=== PATIENT | male | born 1940 | race Caucasian/White ===

== ENCOUNTER 2019-06-06 00:40 | Day surgery (SDC) | payer MEDICARE ==
[~2019-06-06 00:40] MED LIST: ALLO300 PO; ASPI325EC PO; CALCA500CH PO; CHOL10002 PO; CODACE30 PO; CYAN500 PO; FAMO20 PO; FURO20 PO; HYDR1TAB94 PO; Klor-Con 1010 MEQ PO; LISI5 PO; MELA3 PO; METO25 PO; MULVIT PO; PRAV20 PO
== END 2019-06-06 10:59 | disposition home or self-care (01) ==
LOC: ATC 00:40
DX: R55 Syncope and collapse (principal); I10 Essential (primary) hypertension; E78.5 Hyperlipidemia, unspecified; I25.2 Old myocardial infarction; E11.9 Type 2 diabetes mellitus without complications; J45.909 Unspecified asthma, uncomplicated; Z87.891 Personal history of nicotine dependence; Z88.6 Allergy status to analgesic agent; Z88.5 Allergy status to narcotic agent
CPT/HCPCS: 36415; 80400; 82533; 96372; J0834

== ENCOUNTER 2019-09-24 09:25 | Day surgery (SDC) | payer MEDICARE ==
[~2019-09-24 09:25] MED LIST changes: +ONDA4ODT MM; +Tylenol #3 El12.5 ML PO
--- NOTE | 2019-09-24 12:29 | NUR ---
Patient up to Ambulate independently. Gait steady. Discharge instructions reviewed with patient. Patient verbalizes understanding. Copy given to patient to take home.Lungs clear T/O to Auscultation. PATIENT WAS RECEIVED FROM RADIOLOGY FOR RECOVERY AT 1050.
--- NOTE | 2019-09-25 14:33 | NUR ---
09/25/19 1433 Belén Alvarez PROCEDURE EDIT FOR PURPOSES OF VERIFICATION.
== END 2019-09-24 12:48 | disposition home or self-care (01) ==
LOC: CT 09:25
DX: C22.7 Other specified carcinomas of liver (principal); K86.9 Disease of pancreas, unspecified; M19.90 Unspecified osteoarthritis, unspecified site; I10 Essential (primary) hypertension; E11.9 Type 2 diabetes mellitus without complications; I25.10 Atherosclerotic heart disease of native coronary artery without angina pectoris; J45.909 Unspecified asthma, uncomplicated; K21.9 Gastro-esophageal reflux disease without esophagitis; Z87.891 Personal history of nicotine dependence; E66.9 Obesity, unspecified; Z68.37 Body mass index [BMI] 37.0-37.9, adult; Z79.82 Long term (current) use of aspirin; Z79.899 Other long term (current) drug therapy
CPT/HCPCS: 47000; 77012; 88307; 88341; 88342

== ENCOUNTER 2019-09-28 11:48 | Inpatient (IN) | payer MEDICARE ==
[~2019-09-28] VITALS: Ht 182.9 cm; Wt 136.5 kg
[~2019-09-28 11:48] MED LIST changes: -CALCA500CH PO; +Complete Senio1 EACH PO; -MULVIT PO; +TUMS500 MG PO
[2019-09-28 12:49] LABS: BASOPHILS ABSOLUTE AUTO 0.03 K/mm3 (0.00-0.23); BASOPHILS PERCENT AUTO 0 % (0-2); EOSINOPHILS ABSOLUTE AUTO 0.01 K/mm3 (0.00-0.68); EOSINOPHILS PERCENT AUTO 0 % (0-6); Hematocrit 39.6 % (37.0-53.0); Hemoglobin 12.9 g/dL (13.5-17.5); IMMATURE GRAN ABSOLUTE AUTO 0.16 K/mm3 (0.00-0.10); IMMATURE GRAN PERCENT AUTO 1 % (0-1); LYMPHOCYTES ABSOLUTE AUTO 0.46 K/mm3 (0.84-5.20); LYMPHOCYTES PERCENT AUTO 2 % (21-46); MONOCYTES ABSOLUTE AUTO 1.87 K/mm3 (0.16-1.47); MONOCYTES PERCENT AUTO 9 % (4-13); Mean Corpuscular HGB 31.1 pg (26.0-34.0); Mean Corpuscular HGB Conc 32.6 g/dL (31.5-36.5); Mean Corpuscular Volume 95 fL (80-100); Mean Platelet Volume 10.7 fL (9.1-12.4); NEUTROPHILS ABSOLUTE AUTO 18.59 K/mm3 (1.96-9.15); NEUTROPHILS PERCENT AUTO 88 % (41-73); Platelet Count 201 K/mm3 (150-400); RDW Coefficient Variation 14.6 % (11.7-14.2); RDW Standard Deviation 51.3 fL (35.1-46.3); Red Blood Cell Count 4.15 M/mm3 (4.30-5.90); White Blood Cell Count 21.12 K/mm3 (4.00-11.30)
[2019-09-28 13:13] LABS: Alanine Aminotransfer (ALT/SGP 158 U/L (12-78); Albumin, Blood 1.9 g/dL (3.4-5.0); Albumin/Globulin Ratio 0.5 (0.8-1.8); Alk Phos 394 U/L (50-136); Anion Gap 8 mmol/L (6-16); Aspartate Aminotrans (AST/SGOT 78 U/L (12-37); Bilirubin, Total 5.4 mg/dL (0.1-1.0); Blood Urea Nitrogen 30 mg/dL (8-24); Bun/Creatinine Ratio 28.8 (12.0-20.0); CO2, Blood 24 mmol/L (21-32); Calcium, Blood 8.1 mg/dL (8.5-10.1); Chloride, Blood 102 mmol/L (98-108); Creatinine, Blood 1.04 mg/dL (0.60-1.20); Globulin, Blood 3.8 g/dL (2.2-4.0); Glomerular Filtration Rate >60 (60-); Glucose, Blood 107 mg/dL (70-99); Potassium, Blood 4.3 mmol/L (3.5-5.5); Sodium, Blood 134 mmol/L (136-145); Total Protein, Blood 5.7 g/dL (6.4-8.2)
--- NOTE | 2019-09-28 14:00 | NUR ---
Initial Visit: Pt seen in the ER for symptom managment. Spoke to Dr. Gandhi. He is wanting palliative care to review medications with the pt, and the seems to be confused about giving medications at the correct dose. Pt is alert, oriented. He appears pale. He reports that he is not in "pain," however, he would describe it as being "uncomfortable." is at bedside. She has taken a log of the pt's medication administration. Pt takes 15mg MS Contin BID PRN. However, she has not given this to the pt due to excessive sedation and some "strange remarks, such as 'God, just take me away.'" He has not had the medication since the . She has done the same with his lorazepam. He has not taken any since the . He has taken zofran this morning. He has taken a Tylenol #3 early this morning with good benefit from that medication. He was taking it for breakthrough pain - along with the MS Contin. She states that after discontinuing the medications a couple days ago, he has recovered his normal mentation. He has been falling. He had a mechanical fall last week and a near fall today due to weakness and dizziness. He has been getting slightly dizzy upon standing. He is using a walker at home to go back and forth to the restroom. He has not had a meal in several days. is taking blood sugar everyday, once per day. It has ranged from 115 - around 140. He has been drinking ensure and glucerna. She has been giving him water with benefiber and miralax in it. He has regular bowel movements. He has lost weight in the last year and more in the last one month. Pt is currently complaining of hallucination of bugs crawling on the door and of "pretty wallpaper" at this time. He has gotten fluids and benedryl since arriving to the ER. He has many allergies to medications. His keeps a list of this also. He is having a clausterphobic event during my visit and he is helped into the chair, out of the bed. Transfer is with stand by assist of proof technician helper. This seems to help his event. is very attentive to her . It is clear that she has some caregiver stress. She reports that she is very concerned that she will not be able to keep him from falling. They have a single level home, but they have steps leading up to it. He has had difficulty navigating the steps. They had a home health referral from their PCP, but have not heard anything from them and they have not had a visit. They have seen the oncologist once. He has multiple doctor visits this week. He sees the GI doc tomorrow and she is worried about getting him into the car. When he fell, she had to call the parametics to get him up. Discussed with Dr. Gandhi. Suggest social work manager to discuss caregivers and assistance with home health. Discussed medications, updated on pt's current hallucination. Will follow up with pt if admitted to hospital.
[2019-09-28 16:30] LABS: International Normalized Ratio 1.85; Prothrombin Time Results 19.1 Sec (9.7-11.5)
[2019-09-28] MEDS ORDERED: DOCU100 PO (20:23)
[2019-09-28] MEDS ORDERED: NYSTRITC TOP (20:29)
[2019-09-28] MEDS ORDERED: METFORMIN ER G500 MG PO (20:34)
[2019-09-29 03:20] LABS: BASOPHILS ABSOLUTE AUTO 0.02 K/mm3 (0.00-0.23); BASOPHILS PERCENT AUTO 0 % (0-2); EOSINOPHILS ABSOLUTE AUTO 0.01 K/mm3 (0.00-0.68); EOSINOPHILS PERCENT AUTO 0 % (0-6); Hematocrit 35.5 % (37.0-53.0); Hemoglobin 11.5 g/dL (13.5-17.5); IMMATURE GRAN ABSOLUTE AUTO 0.26 K/mm3 (0.00-0.10); IMMATURE GRAN PERCENT AUTO 2 % (0-1); LYMPHOCYTES ABSOLUTE AUTO 0.41 K/mm3 (0.84-5.20); LYMPHOCYTES PERCENT AUTO 2 % (21-46); MONOCYTES ABSOLUTE AUTO 1.62 K/mm3 (0.16-1.47); MONOCYTES PERCENT AUTO 9 % (4-13); Mean Corpuscular HGB Conc 32.4 g/dL (31.5-36.5); Mean Corpuscular Volume 96 fL (80-100); Mean Platelet Volume 10.4 fL (9.1-12.4); NEUTROPHILS ABSOLUTE AUTO 15.28 K/mm3 (1.96-9.15); NEUTROPHILS PERCENT AUTO 87 % (41-73); Platelet Count 188 K/mm3 (150-400); RDW Coefficient Variation 14.7 % (11.7-14.2); RDW Standard Deviation 51.2 fL (35.1-46.3); Red Blood Cell Count 3.71 M/mm3 (4.30-5.90)
[2019-09-29 03:36] LABS: International Normalized Ratio 1.57; Prothrombin Time Results 16.4 Sec (9.7-11.5)
[2019-09-29 03:38] LABS: Alanine Aminotransfer (ALT/SGP 115 U/L (12-78); Albumin, Blood 1.8 g/dL (3.4-5.0); Albumin/Globulin Ratio 0.5 (0.8-1.8); Alk Phos 354 U/L (50-136); Anion Gap 8 mmol/L (6-16); Aspartate Aminotrans (AST/SGOT 58 U/L (12-37); Bilirubin, Total 5.2 mg/dL (0.1-1.0); Blood Urea Nitrogen 31 mg/dL (8-24); Bun/Creatinine Ratio 31.8 (12.0-20.0); CO2, Blood 26 mmol/L (21-32); Chloride, Blood 102 mmol/L (98-108); Creatinine, Blood 0.98 mg/dL (0.60-1.20); Globulin, Blood 3.6 g/dL (2.2-4.0); Glomerular Filtration Rate >60 (60-); Glucose, Blood 113 mg/dL (70-99); Potassium, Blood 3.9 mmol/L (3.5-5.5); Sodium, Blood 136 mmol/L (136-145); Total Protein, Blood 5.4 g/dL (6.4-8.2)
--- NOTE | 2019-09-29 08:08 | NUR ---
SHIFT SUMMARY PT RESTED INFREQUENTLY T/O NIGHT. CONFUSED/IMPULSIVE OOB. DISCOMFORT DECREASED WITH 2MG IV MORPHINE Q4H. NO NAUSEA/EMESIS. LACTIC ACID CRITICAL YESTARDAY PM, DECREASED TO WNL WITH X1 LITER LR + SCHEDULED IV ABX. HEPARIN GTT INFUSING PER ORDERS. UP TO BSC FREQUENTLY WITH URINE + X3 STOOLS. SBA WITH FWW, 2 PERSON MODERATE ASSIST PT FREQUENTLY REPORTS DIZZINESS UPON POSITION CHANGES, NO ACUTE CHANGE PER FAMILY REPORT DIZZINESS FOR "WEEKS." PT INCREASINGLY IMPULSIVE THIS AM TO GET OOB, BED ALARM ON FOR SAFETY. FAMILY AT BEDSIDE AT THIS TIME. REPORT TO DAY SHIFT RN. PT RESTING IN BED, EYES CLOSED WITH FAMILY AT BEDSIDE, CALL LIGHT IN REACH.
--- NOTE | 2019-09-29 15:14 | NUR ---
Pt resting in bed upon arrival. Dr Cole present, educating Pt and family on plan of care. This RN remained behind to answer questions after Dr Cole leaves. Pt reports 2/10 pain. He reports current regimen is managing his pain. Pt becomes tearful and states "I want to go home and focus on comfort". He states he does not want to spend money on treatment that will prolong his life for only a short term. Family speaks with Pt and request for him to process information and wait for Dr Villalta's recommendations before making a decision. Pt is agreeable. Pt and family report no other concerns. Pt and family agreeable with continued Palliative Care visits. Palliative Care will remain available for symptom management and therpaeutic visits.
--- NOTE | 2019-09-29 16:24 | NUR ---
Spiritual care visit conducted. Patient is lying in bed and alert. Patient's family surround him. Family tell me about their faith background, patient's medical history and about the wonderful family and muslim support system they have. They explain about their worries and fears. I listen empathically, reinforce helpful attitudes and practices and provide pastoral residential treatment counselor and prayer. Patient and family verbalize appreciation for the visit.
--- NOTE | 2019-09-29 19:27 | NUR ---
SUMMARY: NO ACUTE CHANGE TODAY. FORGETFUL, ALERT. PT FAMILY AT BEDSIDE TODAY. PT/FAMILY USING CALL LIGHT. HYDA SCAN TODAY, SEE ADDITIONAL NOTES BY DR. NAIK AND FELICITY. PLAN IS FOR DRAIN PLACEMENT TOMORROW. PT TO BE NPO AT 0000. MEDICATED FOR PAIN PRN. NO ACUTE SAFETY CONCERNS AT THIS TIME
[2019-09-30 04:59] LABS: Source, Urine Catheter
[2019-09-30 05:02] LABS: BASOPHILS ABSOLUTE AUTO 0.05 K/mm3 (0.00-0.23); BASOPHILS PERCENT AUTO 0 % (0-2); EOSINOPHILS ABSOLUTE AUTO 0.01 K/mm3 (0.00-0.68); EOSINOPHILS PERCENT AUTO 0 % (0-6); Hematocrit 35.3 % (37.0-53.0); Hemoglobin 11.6 g/dL (13.5-17.5); IMMATURE GRAN ABSOLUTE AUTO 0.42 K/mm3 (0.00-0.10); IMMATURE GRAN PERCENT AUTO 2 % (0-1); LYMPHOCYTES ABSOLUTE AUTO 0.63 K/mm3 (0.84-5.20); LYMPHOCYTES PERCENT AUTO 3 % (21-46); MONOCYTES ABSOLUTE AUTO 2.02 K/mm3 (0.16-1.47); MONOCYTES PERCENT AUTO 10 % (4-13); Mean Corpuscular HGB Conc 32.9 g/dL (31.5-36.5); Mean Corpuscular Volume 94 fL (80-100); Mean Platelet Volume 10.5 fL (9.1-12.4); NEUTROPHILS ABSOLUTE AUTO 18.01 K/mm3 (1.96-9.15); NEUTROPHILS PERCENT AUTO 85 % (41-73); Platelet Count 270 K/mm3 (150-400); RDW Coefficient Variation 14.9 % (11.7-14.2); RDW Standard Deviation 51.8 fL (35.1-46.3); Red Blood Cell Count 3.74 M/mm3 (4.30-5.90); White Blood Cell Count 21.14 K/mm3 (4.00-11.30)
--- NOTE | 2019-09-30 05:04 | NUR ---
SHIFT SUMMARY [id number]. PT CONFUSED T/O NIGHT. FREQUENTLY ATTEMPTING OOB, NOT USING CALL LIGHT. EDUCATED PORCELAIN TECHNICIAN LIGHT MULTIPLE TIMES. FREQUENT ATTEMPTS AT URINATION PT UNABLE TO URINATE MORE THAN 100 IN URINAL. UNABLE TO BLADDER SCAN PER ANATOMY. STRAIGHT CATH PERFORMED 100 OUT. SAMPLE SENT R/T CONCENTRATION OF URINE AND COLOR. PT HAS BEEN UP AND DOWN BETWEEN CHAIR AND BED MULTIPLE TIMES. VERY COOPERATIVE WITH CARE, PLEASANTLY CONFUSED DURING SHIFT. NPO SINCE MIDNIGHT PER ORDERS. PT TOLERATING WELL.
[2019-09-30 05:06] LABS: Bilirubin, Urine 2+ (Neg); Blood, Urine 4+ (Neg); Glucose Qualitative, Urine Neg (Neg); Ketones, Urine 2+ (Neg); Leukocyte Esterase, Urine 1+ (Neg); Nitrite, Urine Neg (Neg); Protein, Urine 2+ (Neg); Urobilinogen, Urine 2+ (Normal)
[2019-09-30 05:15] LABS: Appearance, Urine Hazy (Clear); Bacteria Few /hpf; Color, Urine Amber (P-Yellow); Squamous Epithelial Cells Few /hpf (Few)
[2019-09-30 05:16] LABS: Granular Casts 0-2 /lpf (0); Hyaline Casts 0-2 /lpf (0-2)
[2019-09-30 05:24] LABS: Alanine Aminotransfer (ALT/SGP 93 U/L (12-78); Albumin, Blood 1.7 g/dL (3.4-5.0); Albumin/Globulin Ratio 0.4 (0.8-1.8); Alk Phos 394 U/L (50-136); Anion Gap 8 mmol/L (6-16); Aspartate Aminotrans (AST/SGOT 66 U/L (12-37); Bilirubin, Total 3.7 mg/dL (0.1-1.0); Blood Urea Nitrogen 30 mg/dL (8-24); Bun/Creatinine Ratio 32.8 (12.0-20.0); CO2, Blood 24 mmol/L (21-32); Calcium, Blood 7.7 mg/dL (8.5-10.1); Chloride, Blood 104 mmol/L (98-108); Creatinine, Blood 0.92 mg/dL (0.60-1.20); Globulin, Blood 4.1 g/dL (2.2-4.0); Glomerular Filtration Rate >60 (60-); Glucose, Blood 118 mg/dL (70-99); Potassium, Blood 3.7 mmol/L (3.5-5.5); Sodium, Blood 136 mmol/L (136-145); Total Protein, Blood 5.8 g/dL (6.4-8.2)
--- NOTE | 2019-09-30 12:44 | NUR ---
Spiritual care visit conducted. Patient is sleeping and spouse, Bridget, is bedside. Bridget tells me that she is at a loss as to what to read out of the Bible at a time like this. I ask if I could quote Psalm 16 to her. She is amenable and as I quote this Psalm, patient awakens and listens until I finish. I talk with patient about what the verses may mean in difficult times. Patient states that he is ready to go and be with [place]. We talk about his hallucinations and his painful reality and how to have peace no matter what state he is. I also meet with Bridget in the hallway just outside patient's door. She shares about the anxiety and fear and also her tamara and hope. Bridget concludes that she will trust God and ultamately do whatever patient wants she just wants to make an informed decision and at least get some of the pressure and pain off patient before we go to comfort measures. I listen empathically, offer emotional/spiritual support, quote Bible verses and provide pastoral certified travel counselor and prayer. Patient and family respond well and show signs of improved hope.
--- NOTE | 2019-09-30 16:36 | NUR ---
Pt resting in bed and is having moderate intermittent shooting pain. Pt's Bridget is at bedside. Bridget expresses concerns of not knowing if Pt will receive his drain today. No other concerns reported at this time. Spoke with Bedside RN Janet, relayed Pt's pain and request for pain medication. Janet also expresses concerns of not knowing if Pt is having procedure today. Pt has been NPO since midnight and is not on schedule for procedure. Contacted Dr Kirby's office with request for contacting bedside RN if procedure will take place today. Palliative Care will remain available.
--- NOTE | 2019-09-30 17:51 | NUR ---
SHIFT SUMMARY THE PATIENT IS ALERT AND ORIENTED TO SELF AND PLACE WITH FORGETFULNESS. COMPLAINS OF PAIN CONSTANTLY TO R LOWER ABDOMEN; IV FENTANYL ADMINISTERED WITH POSITIVE EFFECTS. PATIENT NEEDS TO MOVE FROM BED TO CHAIR TO BED AGAIN CONSTANTLY. BED/CHAIR ALARMS ON. FAMILY HAVE BEEN AT BEDSIDE ALL DAY. PATIENT REMAINS ON IV ABX WITHOUT S/SX OF ADVERSE REACTIONS NOTED OR REPORTED. DR NAIK CAME TO SEE THE PATIENT AT APPROX 1730 AND INFORMED HIM THAT HE IS STILL ON THE SCHEDULE FOR THE DRAIN PLACEMENT TONIGHT. PATIENT HAS BEEN NPO. IV FLUIDS CONTINUE TO RUN PER ORDER. WILL CONTINUE TO MONITOR AND PROVIDE CARE NEEDED.
--- NOTE | 2019-10-01 04:01 | NUR ---
SHIFT SUMMARY: PT POD #1 FOR PERCUTANEOUS BILIARY DRAIN PLACEMENT. MODERATE AMOUNT OF BROWN FLUID IN BAG. PAIN MANAGED WITH 25MCG OF FENTANYL PRN PER EMAR. HEP GTT DISCONTINUED AFTER PROCEDURE AND PT STARTED ON HOME DOSE OF XERELTO PER HOSPITALIST ORDERS. PT PLEASANTLY CONFUSED T/O SHIFT. CALM AND COOPERATIVE WITH CARE. ALERT TO SELF AND FAMILY ONLY. ATTENDS CHANGED AND PT REPOSITIONED PRN. CBGS STABLE WITHOUT NEED FOR COVERAGE.
[2019-10-01 07:37] LABS: BASOPHILS ABSOLUTE AUTO 0.06 K/mm3 (0.00-0.23); BASOPHILS PERCENT AUTO 0 % (0-2); EOSINOPHILS ABSOLUTE AUTO 0.03 K/mm3 (0.00-0.68); EOSINOPHILS PERCENT AUTO 0 % (0-6); Hematocrit 33.7 % (37.0-53.0); Hemoglobin 10.9 g/dL (13.5-17.5); IMMATURE GRAN ABSOLUTE AUTO 0.68 K/mm3 (0.00-0.10); IMMATURE GRAN PERCENT AUTO 4 % (0-1); LYMPHOCYTES ABSOLUTE AUTO 0.62 K/mm3 (0.84-5.20); LYMPHOCYTES PERCENT AUTO 4 % (21-46); MONOCYTES PERCENT AUTO 8 % (4-13); Mean Corpuscular HGB Conc 32.3 g/dL (31.5-36.5); Mean Corpuscular Volume 96 fL (80-100); Mean Platelet Volume 9.9 fL (9.1-12.4); NEUTROPHILS ABSOLUTE AUTO 13.96 K/mm3 (1.96-9.15); NEUTROPHILS PERCENT AUTO 84 % (41-73); Platelet Count 211 K/mm3 (150-400); RDW Coefficient Variation 15.5 % (11.7-14.2); RDW Standard Deviation 53.5 fL (35.1-46.3); Red Blood Cell Count 3.52 M/mm3 (4.30-5.90); White Blood Cell Count 16.65 K/mm3 (4.00-11.30)
[2019-10-01 07:57] LABS: Alanine Aminotransfer (ALT/SGP 119 U/L (12-78); Albumin, Blood 1.5 g/dL (3.4-5.0); Albumin/Globulin Ratio 0.4 (0.8-1.8); Alk Phos 450 U/L (50-136); Anion Gap 6 mmol/L (6-16); Aspartate Aminotrans (AST/SGOT 186 U/L (12-37); Bilirubin, Total 6.1 mg/dL (0.1-1.0); Blood Urea Nitrogen 22 mg/dL (8-24); Bun/Creatinine Ratio 33.1 (12.0-20.0); CO2, Blood 25 mmol/L (21-32); Calcium, Blood 7.7 mg/dL (8.5-10.1); Chloride, Blood 108 mmol/L (98-108); Creatinine, Blood 0.67 mg/dL (0.60-1.20); Globulin, Blood 3.7 g/dL (2.2-4.0); Glomerular Filtration Rate >60 (60-); Glucose, Blood 102 mg/dL (70-99); Potassium, Blood 3.5 mmol/L (3.5-5.5); Sodium, Blood 139 mmol/L (136-145); Total Protein, Blood 5.2 g/dL (6.4-8.2)
--- NOTE | 2019-10-01 08:14 | NUR ---
DR VILLALTA BY TO SEE PT RT CALLED FOR NEB TX
--- NOTE | 2019-10-01 10:08 | NUR ---
dr honeycutt called pt up in chair pt stated he still is hurting re the drain req tylenol 3 pt stated he has taken it in the past with out a rx has had allergic rx to oxy rash all over unsure if he has taken norco
--- NOTE | 2019-10-01 12:04 | NUR ---
dr brown by to see pt up in chair pt stated pain is much better 11/20
--- NOTE | 2019-10-01 13:10 | NUR ---
PT BACK INTO BED RESTING
--- NOTE | 2019-10-01 13:41 | NUR ---
pallative care rn at bedside
--- NOTE | 2019-10-01 14:17 | NUR ---
Therapeutic visit this afternoon. Pt resting in bed with his eyes closed. Pt's and granddaughter at bedside. Offered therapeutic listening and answered questions. Pt intermittently opens his eyes but is non verbal. Bridget expresses concerns regarding finances and her ability to hire caregivers. Instructed Bridget these concerns will be relayed to Caremanager. Family agreeable with continued Palliative Care visits. Spoke with Caremanager Grace and relayed concerns. Spoke with Hospitalist and discussed case. Palliative Care will remain available.
--- NOTE | 2019-10-01 15:34 | NUR ---
Spiritual care visit conducted. Patient is sleeping so patient's spouse, Bridget, walks me outside the room to talk. She shares about how she had in the room crying because she is so overwhelmed by all that is happening and the decisions that are being and will have to be made. We unpack some of her worries, talk about sources of strength and direction and discuss the patient's wishes. I listen empathically, encourage self-care, normalize her experience and provide recitation of scripture and a calming presence. Patient responds well and voices gratitude for the visit.
--- NOTE | 2019-10-01 17:40 | NUR ---
pt sitting up eating dinner meds given as sched offered pain meds pt declined pt drain emptied 80 ml earlier pt had est 100 ml emptied onto the floor the cap came loose pt worried that the staff will not answer his lights on the night stocker stated i will talk with night stocker about rounding and make a sched for him
--- NOTE | 2019-10-02 02:30 | NUR ---
ASSUMED CARE OF PT. PT SLEEPING IN BED, RESP E/U, NO DISTRESS NOTED. PLAN TO MONITOR AND TX PER ORDERS.
--- NOTE | 2019-10-02 03:15 | NUR ---
SHIFT SUMMARY PT APPEARS TO HAVE SLEPT WELL T/O NIGHT. ABX GIVEN PER ORDERS. DRAIN TO RLQ IN PLACE, DRESSING C/D/I. PT ABLE TO FOLLOW DIRECTIONS AND ASSIST WITH REPOSITIONING. IS CURRENTLY RESTING IN BED WITH CALL LIGHT IN REACH. REPORT GIVEN TO PAVEL LOMBARDO.
--- NOTE | 2019-10-02 07:43 | NUR ---
PT VSS T/O NIGHT, PT SLEPT FOR MOST OF NIGHT, AWOKE ALERT AND ORIENTED. DRAIN DRNG THICK GREEN BILE. PT APPEARS MORE JAUNDICED THIS AM. URINE DARK, STAINING BRIGHT YELLOW, UO MINIMAL, IVF CONT PER ORDERS. PT USING CALL LIGHT FOR ASSISTANCE, BED ALARM ON FOR SAFETY. REPORT GIVEN TO DAY RN.
[2019-10-02 08:51] LABS: Alanine Aminotransfer (ALT/SGP 144 U/L (12-78); Albumin, Blood 1.4 g/dL (3.4-5.0); Albumin/Globulin Ratio 0.4 (0.8-1.8); Alk Phos 426 U/L (50-136); Anion Gap 3 mmol/L (6-16); Aspartate Aminotrans (AST/SGOT 217 U/L (12-37); Bilirubin, Total 5.5 mg/dL (0.1-1.0); Blood Urea Nitrogen 21 mg/dL (8-24); Bun/Creatinine Ratio 31.8 (12.0-20.0); CO2, Blood 27 mmol/L (21-32); Calcium, Blood 7.6 mg/dL (8.5-10.1); Chloride, Blood 108 mmol/L (98-108); Creatinine, Blood 0.66 mg/dL (0.60-1.20); Globulin, Blood 3.5 g/dL (2.2-4.0); Glomerular Filtration Rate >60 (60-); Glucose, Blood 108 mg/dL (70-99); Potassium, Blood 3.4 mmol/L (3.5-5.5); Sodium, Blood 138 mmol/L (136-145); Total Protein, Blood 4.9 g/dL (6.4-8.2)
--- NOTE | 2019-10-02 09:00 | NUR ---
PT QUITE PLEASANT COOP A/O X3 SOME ABD PN MED PER EMAR. PERCUTANEOIS BILIARY DRAIN BROWN FLUID DRAINING SCANT FLUID AT SIDE IN BAG. IN TO VISIT PT. H/R REG, NO MURMER NOTED. NO TELE. LUNGS CLEAR, RESP EASY, UNLABORED. ON R.A/ BT X4 LAST BM NOT KNOWN, IS TENDER. LARGE, PT STATES NORM SIZE. VIODS 1 ASST TO BATHROOM. FWW. PT WORKING THRU NEW CA DX. AT BEDSIDE. STATES BAHAI FAMILY, GOOD SUPPORT. CONTINUE TO FOLLOW. VISITED WITH PT OFFERED COMFORT AND UNDERSTANDING. BED IN LOW POSITION, CALL LITE IN REACH, CALLS APPROP
--- NOTE | 2019-10-02 11:11 | NUR ---
Pt resting in recliner chair, awake, and more alert this AM. Pt reports his pain is managed with current regimen. Pt's also present during visit. Offered therapeutic listening as Pt and express fears and concerns. Listened to both Pt and 's goals. Pt expresses fears of being a burden for his and fears regarding quality of life. Bridget reports willingness to do what it takes to care for Pt and states he would not be a burden. Continued therapeutic listening with Pt and coming to an agreement to stay the coarse of treatment plan. Discussed current code status and educated on life sustaining measures. Pt reports for now is willing to remain a full code and will revist wishes as needed. Bridget inquires about having Pt's DMV document for Handicapp karime being signed by . Suggest to discuss and request hospitalist sign when she makes her rounds. Pt and express appreciation of visit and report no other concerns. Spoke with Krsiti Edwards and discussed case. Palliative Care will remain available for symptom management and therapeutic visits.
--- NOTE | 2019-10-02 11:27 | NUR ---
PT AMBULATED SELF TO BATHROOM TO URINATE. SBA. DID WELL, TIRED WHEN BACK TO BED.
--- NOTE | 2019-10-02 11:59 | NUR ---
Spiritual care visit conducted. Patient is sitting on a chair and alert. Patient has spouse, Bridget, present. We talk about decisions anchored in the advance directive, about the mandaeism aspects of these issues and about goals they have for this season. I listen empathically, normalize patient's experience, explore issues of tamara and scripture and provide pastoral guidance and prayer. Patient and Bridget respond well. I will continue to remain available to patient and family.
--- NOTE | 2019-10-02 13:21 | NUR ---
Therapeutic visit. Dr Bland at bedside discussing plan of care and prognosis. This RN remained behind to answer questions for Pt and family. Family still hanging on to hope that another drain can be placed to help reduce bilirubin levels. Family request for Dr Villalta to come visit with him. Pt appears accepting of prognosis and states "It's time to move to plan B and keep me comfortable". Discussed hospice as an option and educated on hospice philosophy. Continued therapeutic listening and offered emotional support. Family expresses appreciation of visit. Spoke with Dr Mock and discussed case. Called Dr Villalta's office and relayed family's request for Dr Villalta to make visit. Palliative Care will remain available.
--- NOTE | 2019-10-02 14:51 | NUR ---
Spiritual care visit conducted. After receiving a call from Osmani Saavedra stating that the patient just received a hospice diagnosis. Patient and family were crying when I entered the room. I talked with family about the reality of the situation and the difficulty of processing it, about the importance of tamara, hope and love and about the power of fully being in each moment. I listened to their concerns and hopes, I provided a calming presence, pastoral personnel counselor and prayer. They all responded well and showed signs of improved hope. I will continue to remain available to patient and family.
--- NOTE | 2019-10-02 16:44 | NUR ---
PT PLEASAANT COOP A/O. PAIN MANAGED WITH AVAIL MEDS. VERY LITTLE DRAINAGE IN BILIARY DRAIN BAG. HAS BEEN UP TO BATHROOM SEVERAL TIMES. WORKING ON HIS I/S. BOTTOM SOME RED, ENCOURAGED TO GET OFF BOTTOM AND KEEP TURNING TO SIDES. PT AGREES. BED IN LOW POSITION, CALL LITE IN REACH, CALLS APPROP. AT BED SIDE.
[2019-10-03 05:48] LABS: BASOPHILS ABSOLUTE AUTO 0.05 K/mm3 (0.00-0.23); BASOPHILS PERCENT AUTO 0 % (0-2); EOSINOPHILS ABSOLUTE AUTO 0.19 K/mm3 (0.00-0.68); EOSINOPHILS PERCENT AUTO 2 % (0-6); Hematocrit 35.7 % (37.0-53.0); Hemoglobin 11.3 g/dL (13.5-17.5); IMMATURE GRAN ABSOLUTE AUTO 0.63 K/mm3 (0.00-0.10); IMMATURE GRAN PERCENT AUTO 5 % (0-1); LYMPHOCYTES ABSOLUTE AUTO 0.77 K/mm3 (0.84-5.20); LYMPHOCYTES PERCENT AUTO 7 % (21-46); MONOCYTES ABSOLUTE AUTO 0.75 K/mm3 (0.16-1.47); MONOCYTES PERCENT AUTO 6 % (4-13); Mean Corpuscular HGB 30.1 pg (26.0-34.0); Mean Corpuscular HGB Conc 31.7 g/dL (31.5-36.5); Mean Corpuscular Volume 95 fL (80-100); Mean Platelet Volume 10.3 fL (9.1-12.4); NEUTROPHILS ABSOLUTE AUTO 9.34 K/mm3 (1.96-9.15); NEUTROPHILS PERCENT AUTO 80 % (41-73); Platelet Count 219 K/mm3 (150-400); RDW Coefficient Variation 15.7 % (11.7-14.2); RDW Standard Deviation 54.7 fL (35.1-46.3); Red Blood Cell Count 3.76 M/mm3 (4.30-5.90); White Blood Cell Count 11.73 K/mm3 (4.00-11.30)
[2019-10-03 06:18] LABS: Alanine Aminotransfer (ALT/SGP 181 U/L (12-78); Albumin, Blood 1.5 g/dL (3.4-5.0); Albumin/Globulin Ratio 0.4 (0.8-1.8); Alk Phos 484 U/L (50-136); Anion Gap 6 mmol/L (6-16); Aspartate Aminotrans (AST/SGOT 240 U/L (12-37); Bilirubin, Direct 5.4 mg/dL (0.0-0.3); Bilirubin, Total 6.2 mg/dL (0.1-1.0); Blood Urea Nitrogen 19 mg/dL (8-24); Bun/Creatinine Ratio 25.4 (12.0-20.0); CO2, Blood 27 mmol/L (21-32); Calcium, Blood 7.8 mg/dL (8.5-10.1); Chloride, Blood 109 mmol/L (98-108); Creatinine, Blood 0.75 mg/dL (0.60-1.20); Globulin, Blood 3.9 g/dL (2.2-4.0); Glomerular Filtration Rate >60 (60-); Glucose, Blood 111 mg/dL (70-99); Potassium, Blood 3.6 mmol/L (3.5-5.5); Sodium, Blood 142 mmol/L (136-145); Total Protein, Blood 5.4 g/dL (6.4-8.2)
--- NOTE | 2019-10-03 07:36 | NUR ---
SHIFT SUMMARY: CHRIS HAS RESTED INTERMITTENTLY DURING THE NIGHT. HE USES HIS CALL LIGHT APPROPRIATELY. HE HAS BEEN URINATING IN THE URINAL OR AMBULATING TO THE BATHROOM. HE USES A FWW AT HOME. BILIRUBIN HAS INCREASED TO 6.2. PERCUTANEOUS BILIARY DRAIN PATENT, DRAINING BROWNISH FLUID. HE HAS COMPLAINED OF PAIN ON HIS COCCYX, MEPLIEX IN PLACE. SKIN INTACT WITH SOME BLANCHABLE REDNESS. HE WAS ENCOURAGED TO STAY OFF OF HIS BOTTOM OFTEN POSSIBLE. HE WAS ASSISTED WITH TURNS AND REPOSITIONING. HE DOES MOVE HIMSELF FAIRLY WELL IN BED. HE IS TOLERATING PO INTAKE, BUT DID COMPLAIN OF NAUSEA EARLY IN THE SHIFT FOR WHICH HE REPORTED ZOFRAN TO BE EFFECTIVE AND DECLINED ANY FURTHER DOSES. HE STATES THAT HE HAS NOT HAD A BOWEL MOVEMENT FOR A COUPLE OF DAYS. HE IS ABLE TO MAKE HIS NEEDS KNOWN. WILL REPORT TO DAY SHIFT RN.
--- NOTE | 2019-10-03 12:13 | NUR ---
1200-pt transported to imaging for MRCP via wheelchair 1215-pt back in room, too large for MR equipment. notified
--- NOTE | 2019-10-03 13:28 | NUR ---
dr brown roundjuan on pt. In room US being performed now
--- NOTE | 2019-10-03 16:55 | NUR ---
dr brown rounding on pt
[2019-10-03 18:04] LABS: International Normalized Ratio 1.39; Prothrombin Time Results 14.6 Sec (9.7-11.5)
--- NOTE | 2019-10-03 18:18 | NUR ---
shift summary: vss, no acute changes, pt remained a/o x 4, forgetful at times, reorients well and follows directions. pt denies n/v, rates pain at 5/10, medicated per mar with reported 3/10. family/friends in room with pt t/o the day. pt unable to receive MRI due to sizing issues. pt received ultrasound today in anticpation of Stent placement. Dr Villalta unable to schedule placement r/t pt being on Xarelto. after consulting with pt, Dr Villalta recommends preparing for procedure Sunday with Dr John. pt worked with PT/OT this shift, ambulated in hallway, up to bathroom with gait belt/fww/standby. Biliary drain with 100 ml out this shift, thick viscous yellow/green fluid. pt denies n/v, states he has no appetite. this RN encouraged PO intake with meal supplements, which pt agreed to. Also encouraged family to bring snacks of healthy foods pt enjoys. Pt states he has a hard time getting comfortable at night. This RN provided pt and family education on bedtime resources for comfort provided by surgical unit. pt states he will request if he wishes
--- NOTE | 2019-10-04 04:12 | NUR ---
SHIFT SUMMARY PT A/O, VSS W/OUT ANY ACUTE CHANGES THIS SHIFT. IV HEPARIN INFUSING, AWAITING MORNING LABS FOR PTT. DENIES N/V, ENCOURAGED PO INTAKE. PAIN MANAGED WITH ONE TAB TYLENOL #3. PT UP TO CHAIR W/1 ASSIST; IS ALSO ABLE TO ASSIT WITH REPOSITIONING. PERCUTANEOUS BILIARY DRAIN PATENT, DRAINING GREEN FLUID. PAIN MANAGED WITH ONE TAB TYLENOL #3. USES CALL LIGHT APPROPRIATELY. ABLE TO USE URINAL W/ASSISTANCE, NO INCONTINENCE THIS SHIFT. PT CURRENTLY WATCHING TV IN CHAIR AT THIS TIME WITH CALL LIGHT IN REACH. WILL CONTINUE TO MONITOR AND GIVE REPORT TO ONCOMING.
[2019-10-04 06:07] LABS: BASOPHILS ABSOLUTE AUTO 0.04 K/mm3 (0.00-0.23); BASOPHILS PERCENT AUTO 0 % (0-2); EOSINOPHILS ABSOLUTE AUTO 0.16 K/mm3 (0.00-0.68); EOSINOPHILS PERCENT AUTO 2 % (0-6); Hematocrit 32.9 % (37.0-53.0); Hemoglobin 10.8 g/dL (13.5-17.5); IMMATURE GRAN PERCENT AUTO 7 % (0-1); LYMPHOCYTES ABSOLUTE AUTO 0.77 K/mm3 (0.84-5.20); LYMPHOCYTES PERCENT AUTO 8 % (21-46); MONOCYTES ABSOLUTE AUTO 0.66 K/mm3 (0.16-1.47); MONOCYTES PERCENT AUTO 7 % (4-13); Mean Corpuscular HGB 30.9 pg (26.0-34.0); Mean Corpuscular HGB Conc 32.8 g/dL (31.5-36.5); Mean Corpuscular Volume 94 fL (80-100); NEUTROPHILS ABSOLUTE AUTO 7.33 K/mm3 (1.96-9.15); NEUTROPHILS PERCENT AUTO 76 % (41-73); Platelet Count 243 K/mm3 (150-400); RDW Coefficient Variation 15.9 % (11.7-14.2); RDW Standard Deviation 54.4 fL (35.1-46.3); White Blood Cell Count 9.66 K/mm3 (4.00-11.30)
[2019-10-04 06:24] LABS: Alanine Aminotransfer (ALT/SGP 206 U/L (12-78); Albumin, Blood 1.4 g/dL (3.4-5.0); Albumin/Globulin Ratio 0.4 (0.8-1.8); Alk Phos 529 U/L (50-136); Anion Gap 6 mmol/L (6-16); Aspartate Aminotrans (AST/SGOT 281 U/L (12-37); BAND PERCENT MAN 2 % (0-8); BASOPHILS PERCENT MAN 0 % (0-2); Bilirubin, Total 6.6 mg/dL (0.1-1.0); Blood Urea Nitrogen 17 mg/dL (8-24); Bun/Creatinine Ratio 23.2 (12.0-20.0); CO2, Blood 28 mmol/L (21-32); Calcium, Blood 7.7 mg/dL (8.5-10.1); Chloride, Blood 108 mmol/L (98-108); Creatinine, Blood 0.73 mg/dL (0.60-1.20); EOSINOPHILS ABSOLUTE MAN 0.19 K/mm3 (0.00-0.68); EOSINOPHILS PERCENT MAN 2 % (0-6); Globulin, Blood 3.9 g/dL (2.2-4.0); Glomerular Filtration Rate >60 (60-); Glucose, Blood 115 mg/dL (70-99); LYMPHOCYTES ABSOLUTE MAN 1.15 K/mm3 (0.84-5.20); LYMPHOCYTES PERCENT MAN 12 % (21-46); METAMYELOCYTE ABSOLUTE MAN 0.19 K/mm3 (0.00-0.00); METAMYELOCYTE PERCENT MAN 2 % (0-0); MONOCYTES ABSOLUTE MAN 0.28 K/mm3 (0.16-1.47); MONOCYTES PERCENT MAN 3 % (4-13); NEUTROPHILS ABSOLUTE MAN 7.82 K/mm3 (1.96-9.15); Potassium, Blood 4.5 mmol/L (3.5-5.5); SEG NEUTROPHILS PERCENT MAN 79 % (41-73); Sodium, Blood 142 mmol/L (136-145); TOTAL CELLS COUNTED 100; Total Protein, Blood 5.3 g/dL (6.4-8.2)
--- NOTE | 2019-10-04 19:31 | NUR ---
SHIFT SUMMARY NO ACUTE CHANGES NOTED THROUGH THE DAY. PT REMAINS A&O X4. PT IS TOLERATING PO INTAKE ALTHOUGH APPETITE IS MINIMAL. PAIN MANAGED WITH PO TYLENOL #3. DRSG REMAINS C/D/I, 60 ML DARK GREEN DRAINAGE NOTED IN BAG. HEPARIN INFUSING PER POWERGLIDE @ 20 UNITS/HR. PT IS ON RA, VSS, 1 ASSIST FOR TRANSFERS. IS AT THE BEDSIDE. FAMILY HAS BEEN IN THROUGH THE DAY. REPORT GIVEN TO DIA ZHAO. CALL LIGHT IN REACH
--- NOTE | 2019-10-05 04:07 | NUR ---
SHIFT SUMMARY AAOX4, VSS. PT HAS BEEN AMBULATING WITH 1 ASSIST FWW,GB. CALLING APPROPRIATLY. REPOSITIONING IN BED FREQUENTLY. AT BEDSIDE HAS BEEN HELPING PT TO USE URINAL. PT MEDICATED FOR PAIN WITH TYLENOL 3 X1. TOLERATED WELL STATED RELIEF. DRAIN IS HAVING BROWN/YELLOW DRAINAGE. PT HAS BEEN POSITIVE AND COOPERATIVE WITH CARE. HEPARIN INFUSING T/O SHIFT PER EMAR.
[2019-10-05 05:22] LABS: Hematocrit 31.2 % (37.0-53.0); Hemoglobin 10.3 g/dL (13.5-17.5); Mean Corpuscular HGB 30.7 pg (26.0-34.0); Mean Corpuscular Volume 93 fL (80-100); Mean Platelet Volume 10.3 fL (9.1-12.4); Platelet Count 207 K/mm3 (150-400); RDW Coefficient Variation 15.9 % (11.7-14.2); RDW Standard Deviation 53.7 fL (35.1-46.3); Red Blood Cell Count 3.36 M/mm3 (4.30-5.90); White Blood Cell Count 10.49 K/mm3 (4.00-11.30)
[2019-10-05 05:57] LABS: Alanine Aminotransfer (ALT/SGP 193 U/L (12-78); Albumin, Blood 1.5 g/dL (3.4-5.0); Albumin/Globulin Ratio 0.5 (0.8-1.8); Alk Phos 515 U/L (50-136); Anion Gap 2 mmol/L (6-16); Aspartate Aminotrans (AST/SGOT 200 U/L (12-37); Bilirubin, Total 6.5 mg/dL (0.1-1.0); Blood Urea Nitrogen 14 mg/dL (8-24); Bun/Creatinine Ratio 22.4 (12.0-20.0); CO2, Blood 28 mmol/L (21-32); Calcium, Blood 7.6 mg/dL (8.5-10.1); Chloride, Blood 109 mmol/L (98-108); Creatinine, Blood 0.63 mg/dL (0.60-1.20); Globulin, Blood 3.3 g/dL (2.2-4.0); Glomerular Filtration Rate >60 (60-); Glucose, Blood 119 mg/dL (70-99); Potassium, Blood 3.2 mmol/L (3.5-5.5); Sodium, Blood 139 mmol/L (136-145); Total Protein, Blood 4.8 g/dL (6.4-8.2)
[2019-10-05 06:16] LABS: BAND PERCENT MAN 2 % (0-8); BASOPHILS PERCENT MAN 0 % (0-2); EOSINOPHILS PERCENT MAN 1 % (0-6); LYMPHOCYTES ABSOLUTE MAN 0.73 K/mm3 (0.84-5.20); LYMPHOCYTES PERCENT MAN 7 % (21-46); METAMYELOCYTE PERCENT MAN 1 % (0-0); MONOCYTES ABSOLUTE MAN 0.62 K/mm3 (0.16-1.47); MONOCYTES PERCENT MAN 6 % (4-13); NEUTROPHILS ABSOLUTE MAN 8.91 K/mm3 (1.96-9.15); SEG NEUTROPHILS PERCENT MAN 83 % (41-73); TOTAL CELLS COUNTED 100
--- NOTE | 2019-10-05 15:40 | NUR ---
SUMMARY: NO ACUTE CHANGE TODAY. PT A/O, VSS. USING CALL LIGHT. UP WITH SBA AND FWW. BILIARY DRAIN OUTPUT WAS ABOUT 60ML. PT MEDICATED FOR PAIN PER EMAR. RECEIVED ANTIBIOTICS. PT AT BEDSIDE. PLAN IS FOR NPO TONIGHT AND DRAIN PLACEMENT TOMORROW. WILL CTM AND REPORT TO DIA ZHAO.
--- NOTE | 2019-10-05 23:08 | NUR ---
NOTICED INCREASE SWELLING IN PT'S RIGHT HAND WITH PITTING EDEMA IN THE R HAND. SPOKE TO RADHA, HOSPITALIST. ORDERS FOR VENOUS DUPLEX TO RULE OUT DVT RECEIVED. ORDERS TO PLACE NEW POWER GLIDE IN OTHER ARM GIVEN. PT DENIES PAIN OR NUMBNESS IN RIGHT HAND. PULSES STILL PALPABLE.
--- NOTE | 2019-10-06 00:32 | NUR ---
LEONIE VENOUS DUPLEX: RESULTS REVIEWED W/HOSPITALIST RADHA Benitez PT MED HX AND CURRENT TX PLANS REVIEWED. ALSO UPDATED ON PLAN FOR GALLBLADDER STENT W/DR GOODMAN 10/06/19 WITH SCHEDULED TIME UNCLEAR. NURSING CLOTH GRADER SUPERVISOR UNABLE TO OBTAIN HEART CENTER SCHEDULE. PLAN TO CONTACT HEART CENTER STAFF AT 0600 TO ATTEMPT TO OBTAIN SCHEDULE. HEPARIN GTT TO BE CONT T/O NIGHT PER HOSPITALIST RADHA Benitez UNTIL TIMING OF PROCEDURE OBTAINED. PRIMARY RN AND PHARMACIST NOTIFIED.
--- NOTE | 2019-10-06 00:48 | NUR ---
NIGHT HOSPITALIST RADHA Benitez ON FLOOR REVIEWING PT CHART.
--- NOTE | 2019-10-06 04:10 | NUR ---
SHIFT SUMMARY AA0X4, VSS. PT HAS BEEN PLEASANT AND COOPERATIVE WITH CARE. AMBULATES 1 ASSIST FWW. VOIDING IN URINAL, IN ROOM HELPING WITH ADLS. HEPARIN RESTARTED PER PHARMACY AND HOSPITALIST, SEE PREVIOUS NOTES. AWAITING HEART CENTER SCHEDULE TO DETERMINE TIME OF SURGERY AND TO DETERMINE CONTINUED PLAN OF INFUSION. NEW DVT AND SVT FOUND DURING SHIFT. IV CATHETERS DC'D IN RIGHT ARM, NEW POWERGLIDE IN LEFT ARM. PT REPOSITIONING FREQUENTLY IN BED. NPO SINCE MIDNIGHT PER ORDERS FOR OR TODAY. NOTICED AN INCREASE IN JAUNDICE OF SKIN DURING SHIFT.
[2019-10-06 05:02] LABS: BASOPHILS ABSOLUTE AUTO 0.05 K/mm3 (0.00-0.23); BASOPHILS PERCENT AUTO 1 % (0-2); EOSINOPHILS ABSOLUTE AUTO 0.19 K/mm3 (0.00-0.68); EOSINOPHILS PERCENT AUTO 2 % (0-6); Hematocrit 31.3 % (37.0-53.0); Hemoglobin 10.2 g/dL (13.5-17.5); IMMATURE GRAN PERCENT AUTO 5 % (0-1); LYMPHOCYTES ABSOLUTE AUTO 0.76 K/mm3 (0.84-5.20); LYMPHOCYTES PERCENT AUTO 7 % (21-46); MONOCYTES ABSOLUTE AUTO 0.61 K/mm3 (0.16-1.47); MONOCYTES PERCENT AUTO 6 % (4-13); Mean Corpuscular HGB 30.4 pg (26.0-34.0); Mean Corpuscular HGB Conc 32.6 g/dL (31.5-36.5); Mean Corpuscular Volume 93 fL (80-100); Mean Platelet Volume 10.3 fL (9.1-12.4); NEUTROPHILS ABSOLUTE AUTO 8.68 K/mm3 (1.96-9.15); NEUTROPHILS PERCENT AUTO 80 % (41-73); Platelet Count 218 K/mm3 (150-400); RDW Coefficient Variation 16.1 % (11.7-14.2); RDW Standard Deviation 54.8 fL (35.1-46.3); Red Blood Cell Count 3.36 M/mm3 (4.30-5.90); White Blood Cell Count 10.79 K/mm3 (4.00-11.30)
[2019-10-06 05:22] LABS: Alanine Aminotransfer (ALT/SGP 166 U/L (12-78); Albumin, Blood 1.6 g/dL (3.4-5.0); Albumin/Globulin Ratio 0.5 (0.8-1.8); Alk Phos 496 U/L (50-136); Anion Gap 6 mmol/L (6-16); Aspartate Aminotrans (AST/SGOT 154 U/L (12-37); Bilirubin, Total 7.5 mg/dL (0.1-1.0); Blood Urea Nitrogen 11 mg/dL (8-24); CO2, Blood 28 mmol/L (21-32); Calcium, Blood 7.6 mg/dL (8.5-10.1); Chloride, Blood 108 mmol/L (98-108); Creatinine, Blood 0.69 mg/dL (0.60-1.20); Globulin, Blood 3.3 g/dL (2.2-4.0); Glomerular Filtration Rate >60 (60-); Glucose, Blood 110 mg/dL (70-99); Potassium, Blood 3.4 mmol/L (3.5-5.5); Sodium, Blood 142 mmol/L (136-145); Total Protein, Blood 4.9 g/dL (6.4-8.2)
--- NOTE | 2019-10-06 07:10 | NUR ---
RECVD REPORT FROM PREVIOUS SHIFT RN EUGENIO, PT SITTING UP IN RECLINER, CALL LIGHT WITHIN REACH, A/O X 4, IN ROOM
--- NOTE | 2019-10-06 10:00 | NUR ---
DR GOODMAN IN WITH PT/FAMILY
--- NOTE | 2019-10-06 10:20 | NUR ---
SPIRITUAL CARE SHAUN HERE WITH PT WE[facility] FAMILY'S HOME [employer]. THIS RN SPOKE WITH SHAUN RE: PT'S DESIRE TO GO HOME ON HOSPICE, FAMILY/ POSSIBLY NOT READY FOR THIS STEP, ASKED SHAUN TO SPEAK WITH TO DETERMINE HER READINESS AND ENCOURAGE FURTHER ACTION FOLLOWING TODAY'S PROCEDURE TO PROVIDE PT WITH HIS WISHES
--- NOTE | 2019-10-06 11:32 | NUR ---
Spiritual care visit conducted. Patient is sitting on a chair and alert. Patient's spouse, Bridget, is present along with several friends. Also patient's Hospitalist comes in and shares with patient about the surgery today and about placing patient on comfort measures following the surgery. Patient states that he desires to be on comfort measures in agreement with doctor. I pull Bridget aside to the hallway and emphasized patient's desires and the importance of listening to the patient. She asks what I would do if patient was my father and I said, "I would take him home on hospice." Bridget says that this is what should do then. I listen to patient and Bridget and provide pastoral child welfare counselor and prayer. Patient and Bridget respond well and show signs of resolve. I will continue to remain available to patient and family.
--- NOTE | 2019-10-06 13:50 | NUR ---
Brief visit this afternoon. Pt just back from procdure and still sleepy. Family currently not at bedside. Will F/U with Pt when family is at bedside. Spoke with bedside RN Nicole and discussed case. Palliative Care will remain available.
--- NOTE | 2019-10-06 14:15 | NUR ---
THIS STUDENT NURSE SPOKE WITH PATIENT FOR APPROVAL TO CARE FOR PATIENT ON 10/07/2019 FROM [phone]. PATIENT AGREED.
--- NOTE | 2019-10-06 15:06 | NUR ---
F/U visit this afternoon. Pt resting in bed with his eyes closed and appears comfortable. Pt's and other family members at bedside. Engaged in therapeutic discussion regarding goals of care. Pt's Bridget reports after discussion with Dr Kirby family will not pursue hospice at this time. She reports at some point Pt may want his drains removed before passing away therefore they do not want hospice at this time. Continued therapeutic listening. No other concerns reported at this time. Spoke with Kristi Edwards and discussed case. Palliative Care will remain available.
--- NOTE | 2019-10-06 20:02 | NUR ---
shift summary: vss, no acute changes. pt's jaundiced appearance with no change, bilirubin elevated from previous shift. Approx 1200 placement of 2nd biliary draing placed in labels molder. pt returned from procedure drowsy, confused/forgetful of happenings during time of procedure. pt denies n/v, denies desire for foot, encouraged and drinking PO fluids. pt urinating >800 ml this shift. pt received remained on heparin drip per pharmacy except for procedure and albumin IV. palliative care, spiritual care, discharge planning all consulted with pt and family about home with hospice. pt expresses his wish to do so. family appears reluctant and other plans are made following procedure for possible STENT placement. pt and request no visitors. during this time, pt's grand daughter meet pt's ex , which upset pt and current . this RN place larger "no visitors" sign on door, gave next shift RN instrutions to check every visitor with pt and before entering. door closed.
--- NOTE | 2019-10-07 04:18 | NUR ---
SHIFT SUMMARY NO ACUTE CHANGES THIS SHIFT, A/OX4 WITH VSS AT BASELINE. PLEASANT AND COOPERATIVE WITH CARE. AT BEDSIDE ASSISTING WITH ADL'S. HEPARIN INFUSING PER ORDERS. IS ABLE TO AMBULATE TO BATHROOM WITH FWW/GB AND 1 ASSIST; PT REPOSITIONED FREQUENTLY T/O SHIFT. WAS UP TO CHAIR TWICE. BOTH BILIARY DRAINS IN PLACE AND DRAINING; DRESSINGS C/D/I. MEDICATED ONCE WITH ONE TYLENOL. IS CURRENTLY RESTING IN BED WITH CALL LIGHT IN REACH. WILL CONT TO MONITOR AND GIVE REPORT TO ONCOMING RN.
[2019-10-07 06:44] LABS: BASOPHILS ABSOLUTE AUTO 0.03 K/mm3 (0.00-0.23); BASOPHILS PERCENT AUTO 0 % (0-2); EOSINOPHILS ABSOLUTE AUTO 0.07 K/mm3 (0.00-0.68); EOSINOPHILS PERCENT AUTO 1 % (0-6); Hematocrit 29.4 % (37.0-53.0); Hemoglobin 9.4 g/dL (13.5-17.5); IMMATURE GRAN ABSOLUTE AUTO 0.37 K/mm3 (0.00-0.10); IMMATURE GRAN PERCENT AUTO 3 % (0-1); LYMPHOCYTES ABSOLUTE AUTO 0.79 K/mm3 (0.84-5.20); LYMPHOCYTES PERCENT AUTO 7 % (21-46); MONOCYTES ABSOLUTE AUTO 0.73 K/mm3 (0.16-1.47); MONOCYTES PERCENT AUTO 6 % (4-13); Mean Corpuscular HGB 30.4 pg (26.0-34.0); Mean Corpuscular Volume 95 fL (80-100); Mean Platelet Volume 10.8 fL (9.1-12.4); NEUTROPHILS ABSOLUTE AUTO 9.96 K/mm3 (1.96-9.15); NEUTROPHILS PERCENT AUTO 83 % (41-73); Platelet Count 232 K/mm3 (150-400); RDW Coefficient Variation 16.5 % (11.7-14.2); RDW Standard Deviation 55.9 fL (35.1-46.3); Red Blood Cell Count 3.09 M/mm3 (4.30-5.90); White Blood Cell Count 11.95 K/mm3 (4.00-11.30)
[2019-10-07 06:55] LABS: Alanine Aminotransfer (ALT/SGP 131 U/L (12-78); Albumin, Blood 1.9 g/dL (3.4-5.0); Albumin/Globulin Ratio 0.6 (0.8-1.8); Alk Phos 422 U/L (50-136); Anion Gap 6 mmol/L (6-16); Aspartate Aminotrans (AST/SGOT 85 U/L (12-37); Bilirubin, Total 4.6 mg/dL (0.1-1.0); Blood Urea Nitrogen 12 mg/dL (8-24); Bun/Creatinine Ratio 16.9 (12.0-20.0); CO2, Blood 27 mmol/L (21-32); Calcium, Blood 7.6 mg/dL (8.5-10.1); Chloride, Blood 107 mmol/L (98-108); Creatinine, Blood 0.71 mg/dL (0.60-1.20); Globulin, Blood 3.3 g/dL (2.2-4.0); Glomerular Filtration Rate >60 (60-); Glucose, Blood 117 mg/dL (70-99); Potassium, Blood 3.8 mmol/L (3.5-5.5); Sodium, Blood 140 mmol/L (136-145); Total Protein, Blood 5.2 g/dL (6.4-8.2)
--- NOTE | 2019-10-07 11:03 | NUR ---
Spiritual care visit conducted. Patient is sitting on a chair and alert. Patient states that his greatest desire in the midst of all the pain and struggle is to bring honor to Myles. Patient talks about his biggest concern is for his and her financial needs after he is gone. We talk about the resources that surround their life, and the strength, tamara, light and love that flows from him even in the darkness of his disease. I listen empathically, reinforce helpful attitudes and practices and provide spiritual guidance and prayer. Patient responds well and shows signs of improved peace. I will continue to remain available to patient and family.
--- NOTE | 2019-10-07 18:05 | NUR ---
SHIFT SUMMARY PT & SPOUSE HAVE BEEN IN AN UPBEAT MOOD TODAY. SURGERY IS SIGNING OFF AND WILL BE AVAILABLE FOR QUESTIONS OR ANY CHANGES THAT COME ALONG IF THEY ARE CALLED. ENCOURAGED PT TO BECOME MORE INVOLVED IN WORKING ON BUILDING STRENGTH, NOT DECLINING THERAPY. PT WAS UP TO CHAIR SEVERAL TIMEES AND WALKING TO BATHROOM.
--- NOTE | 2019-10-08 04:58 | NUR ---
SHIFT SUMMARY NO ACUTE CHANGES THIS SHIFT. PT A/OX4, VSS WITHIN BASELINE. HEPARIN INFUSING PER ORDERS, AWAITING MORNING LABS. REPORTS PAIN MANAGED WITH 1 TAB TYLENOL 3. DRAINS PRODUCING DARK SS FLUID W/ DRESSINGS C/D/I. UP IN CHAIR AND AMBULATED TO BATHROOM WITH FWW/GB AND SBA. REPOSITIONED FREQUENTLY T/O SHIFT. SPOUSE AT BEDSIDE, VERY ATTENTIVE. IS CURRENTLY RESTING IN CHAIR WITH CALL LIGHT IN REACH. WILL GIVE REPORT TO ONCOMING RN.
--- NOTE | 2019-10-08 10:38 | NUR ---
Spiritual care visit conducted. Patient's spouse, Bridget, immediately shares about her worries and concerns about the patient being discharged today. The concerns are mostly centered around logistics and details but she also admits to the fear of being able to manage his care at home. Bridget has some answers to her questions before I even leave the room. Patient states that he is exhausted because of a rough night but is very excited about going home. We gather around patient and I provide prayer. I provide a calm presence and emotional support. Patient and Bridget respond well and voice appreciation for the visit. I will continue to remian available to patient and family.
[2019-10-08] MEDS ORDERED: TYLECOD3 PO (12:56)
[2019-10-08] MEDS ORDERED: AMOCLA875 PO (13:00)
[2019-10-08] MEDS ORDERED: XARELTO20 M1 PO (13:03)
--- NOTE | 2019-10-08 16:34 | NUR ---
2759 DISCHARGE INSTRUCTIONS REVIEWED WITH PATIENT, PATIENTS AND PATIENTS DAUGHTER AND QUESTIONS ANSWERED. DISCUSSED WITH PATIENTS HOW TO EMPTY DRAINS AND PATIENTS WAS ABLE TO CORRECTLY EMPTY DRAIN. [facility]SP[facility] HERE AND PATIENT DISCHARGED TO HOME VIA GURNEY. PT TO BE SEEN BY [facility] ON 10/09/19
== END 2019-10-08 16:35 | disposition home health service (06) | DRG 871 ==
LOC: ER 11:48 → SURS 17:03
PROVIDERS: Emergency Medicine; Family Medicine; Internal Medicine; Internal Medicine Hematology & Oncology; Nurse Practitioner Acute Care; Surgery; ADMIT Family Medicine
PROC: 0F9430Z Drainage of Gallbladder with Drainage Device, Percutaneous Approach (ICD-10-PCS; 2019-09-30)
PROC: 0F9930Z Drainage of Common Bile Duct with Drainage Device, Percutaneous Approach (ICD-10-PCS; principal; 2019-10-08)
DX: A41.51 Sepsis due to Escherichia coli [E. coli] (principal); K83.1 Obstruction of bile duct; I26.99 Other pulmonary embolism without acute cor pulmonale; C25.9 Malignant neoplasm of pancreas, unspecified; C78.7 Secondary malignant neoplasm of liver and intrahepatic bile duct; I25.2 Old myocardial infarction; Z86.711 Personal history of pulmonary embolism; Z79.82 Long term (current) use of aspirin; Z98.84 Bariatric surgery status; Z87.891 Personal history of nicotine dependence; E78.5 Hyperlipidemia, unspecified; K21.9 Gastro-esophageal reflux disease without esophagitis; E11.9 Type 2 diabetes mellitus without complications; M81.0 Age-related osteoporosis without current pathological fracture; Z96.652 Presence of left artificial knee joint; J45.20 Mild intermittent asthma, uncomplicated; G47.33 Obstructive sleep apnea (adult) (pediatric); E66.9 Obesity, unspecified; Z68.36 Body mass index [BMI] 36.0-36.9, adult; E88.09 Other disorders of plasma-protein metabolism, not elsewhere classified
CPT/HCPCS: 36415; 47490; 47533; 74176; 76705; 76937; 76998; 78226; 80053; 81001; 82248; 82947; 83605; 83690; 83735; 85025; 85610; 85730; 87040; 87070; 87075; 87077; 87086; 87186; 87205; 93005; 93010; 93971; 94640; 94760; 96361; 96365; 96375; 97110; 97116; 97162; 97530; 99152; 99153; 99285-25; A9270-GY; A9537; C1729; C1751; C1769; C1894; J1200; J1644; J1940; J2250; J2270; J2405; J2543; J3010; J7030; J7040; J7120; P9041; Q9967

== ENCOUNTER 2019-10-15 11:29 | Day surgery (SDC) | payer MEDICARE ==
[~2019-10-15] VITALS: Ht 182.9 cm; Wt 122.7 kg
[~2019-10-15 11:29] MED LIST changes: +AMOCLA875 PO; +DOCU100 PO; +METFORMIN ER G500 MG PO; +NYSTRITC TOP; +TYLECOD3 PO; +XARELTO20 M1 PO
[2019-10-15] MEDS ORDERED: PROC5 PO (13:20)
--- NOTE | 2019-10-15 18:20 | NUR ---
PT RETURNED TO RECOVERY ROOM ON BED. RIGHT SIDED BILIARY DUCT STENT SITE WITH POLYMEM OVER SITE STABLE WITH SLIGHT TRACK OOZING NOTED; INTIAL BILIARY DUCT STENT ATTEMPTED SITE HAS INTACT DRESSING AND POLYMEM WITH NO OOZING. GALLBLADDER DRAIN INTACT WITH BILE NOTED TO GRAVITY BAG. PT DENIES CHEST PAIN. CALL LIGHT IN REACH.
--- NOTE | 2019-10-15 18:35 | NUR ---
NO CHANGES TO SITES. PT SITTING UP WITH CALL LIGHT IN REACH.
--- NOTE | 2019-10-15 18:41 | NUR ---
PT OFFERED WATER OR JUICE, BUT DECLINED.
--- NOTE | 2019-10-15 18:46 | NUR ---
DR GOODMAN IN ROOM TO SEE PT.
--- NOTE | 2019-10-15 18:52 | NUR ---
PT TOOK SEVERAL SIPS OF WATER. PT RETURNED TO RECOVERY ROOM SLEEPY FROM PROCEDURE SEDATION BUT ORIENTED TO SELF AND PLACE. DR GOODMAN AWARE OF TRANSPORT ARRIVING AT 1915 AND APPROVES.
--- NOTE | 2019-10-15 18:58 | NUR ---
PT'S IN ROOM.
--- NOTE | 2019-10-15 19:32 | NUR ---
UPON FURTHER EVALUATION, RELATIVE TO POST PROCEDURE SEDATION, DR GOODMAN WILL MAKE PT AN INPATIENT TO OBSERVE OVER NIGHT.
--- NOTE | 2019-10-15 20:05 | NUR ---
INITIAL BILIARY STENT ACCESS SITE OOZING NOTED; SITE REDRESSED WITH EXUDERM AND STERI STRIP.
--- NOTE | 2019-10-16 10:43 | NUR ---
DISCHARGE INSTRUCTIONS REVIEWED WITH PT AND SPOUSE. IV DC'D INTACT. NO NEW PRESCRIPTIONS. DR GOODMAN IN TO SEE PT PRIOR TO DISCHARGE AND REPORTS FOLLOW UP IN THE OFFICE. DR CAAL OFFICE TO CALL PT FOR F/U. 125ML DRAINED FROM BILIARY DRAIN. AWAITING [facility] TRANSPORT AT THIS TIME.
--- NOTE | 2019-10-16 11:03 | NUR ---
Spiritual care visit conducted. Patient is lying in bed and resting. Patient's spouse, Bridget, is bedside. She immediately explains about how patient had a horrible night. Bridget tells the terrible things patient said to her. We talk about the effects of the pain meds and the disease and how his hallucinations of seeing rats everywhere and being chased by a [place] drug cartel are as out of maria elena with what patient really thinks as the words patient spoke to her in his aggitation throughout the night. I listen empathically, normalize patient's experience and provide pastoral securities counselor and prayer. Patient wakes for prayer and is very appreciative of the prayer. Bridget responds well to our conversation and shows signs of improved peace.
--- NOTE | 2019-10-16 11:22 | NUR ---
PT DISCHARGED HOME VIA [facility] W[facility]C TRANSPORT AT 1109. SPOUSE AT BEDSIDE.
== END 2019-10-16 11:09 | disposition home or self-care (01) ==
LOC: MHTC 11:29 → MEDS 21:40 → MHTC 21:40 → MEDS 10-16 11:09 → MHTC 10-16 11:09
DX: C25.9 Malignant neoplasm of pancreas, unspecified (principal); I10 Essential (primary) hypertension; E11.9 Type 2 diabetes mellitus without complications; E78.5 Hyperlipidemia, unspecified; I25.2 Old myocardial infarction; J45.909 Unspecified asthma, uncomplicated; Z87.891 Personal history of nicotine dependence; Z88.6 Allergy status to analgesic agent; Z88.8 Allergy status to other drugs, medicaments and biological substances; Z88.5 Allergy status to narcotic agent; E66.9 Obesity, unspecified; Z79.899 Other long term (current) drug therapy
CPT/HCPCS: 47535; 76998; 99152; 99153; C1725; C1769; C1874; C1887; C1894; J0690; J1200; J2060; J2250; J3010; J7030; J7040; Q0164; Q9967

== ENCOUNTER → 2019-10-21 | Outpatient (CLI) | payer MEDICARE ==
[~2019-10-21] MED LIST changes: +PROC5 PO
[2019-10-21 16:00] LABS: Alanine Aminotransfer (ALT/SGP 59 U/L (12-78); Albumin, Blood 1.9 g/dL (3.4-5.0); Albumin/Globulin Ratio 0.5 (0.8-1.8); Alk Phos 346 U/L (50-136); Anion Gap 5 mmol/L (6-16); Aspartate Aminotrans (AST/SGOT 63 U/L (12-37); Bilirubin, Total 3.5 mg/dL (0.1-1.0); Blood Urea Nitrogen 14 mg/dL (8-24); Bun/Creatinine Ratio 23.8 (12.0-20.0); CO2, Blood 25 mmol/L (21-32); Calcium, Blood 7.3 mg/dL (8.5-10.1); Chloride, Blood 110 mmol/L (98-108); Creatinine, Blood 0.59 mg/dL (0.60-1.20); Globulin, Blood 3.5 g/dL (2.2-4.0); Glomerular Filtration Rate >60 (60-); Glucose, Blood 109 mg/dL (70-99); Potassium, Blood 3.5 mmol/L (3.5-5.5); Sodium, Blood 140 mmol/L (136-145); Total Protein, Blood 5.4 g/dL (6.4-8.2)
== END ==
LOC: LAB SHORT 15:30 → LAB 15:30
PROVIDERS: Internal Medicine Hematology & Oncology
DX: C25.9 Malignant neoplasm of pancreas, unspecified (principal)
CPT/HCPCS: 80053

== ENCOUNTER 2019-11-05 06:41 | Day surgery (SDC) | payer MEDICARE ==
[~2019-11-05] VITALS: Ht 182.9 cm; Wt 117.0 kg
[2019-11-05] MEDS ORDERED: METFORMIN ER G500 MG PO (07:34)
--- NOTE | 2019-11-05 09:57 | NUR ---
PT DRESSED AND IN WC, IV DC'D INTACT, DRAIN BAG WITH STRAP PLACED AROUND PT'S R THIGH AND DRAING APPROPRIATELY. NO REDNESS, SWELLING, OR PAIN AT DRAIN DRESSING SITE, PT DC'D BY WC BY THIS RN WITH [facility] GIVING PT RIDE HOME
== END 2019-11-05 09:45 | disposition home or self-care (01) ==
LOC: MHTC 06:41
DX: K83.1 Obstruction of bile duct (principal); C25.9 Malignant neoplasm of pancreas, unspecified; I10 Essential (primary) hypertension; E78.5 Hyperlipidemia, unspecified; I25.2 Old myocardial infarction; E11.9 Type 2 diabetes mellitus without complications; J45.909 Unspecified asthma, uncomplicated; K21.9 Gastro-esophageal reflux disease without esophagitis; T85.528A Displacement of other gastrointestinal prosthetic devices, implants and grafts, initial encounter; Y83.3 Surgical operation with formation of external stoma as the cause of abnormal reaction of the patient, or of later complication, without mention of misadventure at the time of the procedure; Z95.828 Presence of other vascular implants and grafts; Z95.5 Presence of coronary angioplasty implant and graft; Z87.891 Personal history of nicotine dependence; Z88.5 Allergy status to narcotic agent; Z88.8 Allergy status to other drugs, medicaments and biological substances
CPT/HCPCS: 47490; 82947; 99152; 99153; C1729; C1769; C1887; C1894; J1200; J2250; J3010; J7030; J7040; Q9967

== ENCOUNTER 2019-11-24 10:28 | Inpatient (IN) | payer MEDICARE, OTHER ==
[~2019-11-24] VITALS: Ht 182.9 cm; Wt 116.1 kg
[~2019-11-24 10:28] MED LIST changes: +ONDA4 PO
[2019-11-24 11:26] LABS: BASOPHILS ABSOLUTE AUTO 0.08 K/mm3 (0.00-0.23); BASOPHILS PERCENT AUTO 0 % (0-2); EOSINOPHILS ABSOLUTE AUTO 0.18 K/mm3 (0.00-0.68); EOSINOPHILS PERCENT AUTO 1 % (0-6); Hematocrit 41.2 % (37.0-53.0); Hemoglobin 13.3 g/dL (13.5-17.5); IMMATURE GRAN ABSOLUTE AUTO 0.38 K/mm3 (0.00-0.10); IMMATURE GRAN PERCENT AUTO 2 % (0-1); LYMPHOCYTES ABSOLUTE AUTO 1.37 K/mm3 (0.84-5.20); LYMPHOCYTES PERCENT AUTO 7 % (21-46); MONOCYTES ABSOLUTE AUTO 2.06 K/mm3 (0.16-1.47); MONOCYTES PERCENT AUTO 11 % (4-13); Mean Corpuscular HGB 32.8 pg (26.0-34.0); Mean Corpuscular HGB Conc 32.3 g/dL (31.5-36.5); Mean Corpuscular Volume 102 fL (80-100); NEUTROPHILS PERCENT AUTO 79 % (41-73); NRBC Auto 0.5 /100 WBC (0.0-0.2); RDW Coefficient Variation 18.5 % (11.7-14.2); RDW Standard Deviation 67.5 fL (35.1-46.3); Red Blood Cell Count 4.06 M/mm3 (4.30-5.90); White Blood Cell Count 18.97 K/mm3 (4.00-11.30)
[2019-11-24 11:41] LABS: Troponin I <0.015 ng/mL (0.000-0.040)
[2019-11-24 11:42] LABS: Alanine Aminotransfer (ALT/SGP 90 U/L (12-78); Albumin/Globulin Ratio 0.6 (0.8-1.8); Alk Phos 827 U/L (50-136); Anion Gap 9 mmol/L (6-16); Aspartate Aminotrans (AST/SGOT 185 U/L (12-37); Bilirubin, Total 3.2 mg/dL (0.1-1.0); Blood Urea Nitrogen 51 mg/dL (8-24); Bun/Creatinine Ratio 39.8 (12.0-20.0); CO2, Blood 22 mmol/L (21-32); Calcium, Blood 8.6 mg/dL (8.5-10.1); Chloride, Blood 106 mmol/L (98-108); Creatinine, Blood 1.28 mg/dL (0.60-1.20); Globulin, Blood 3.6 g/dL (2.2-4.0); Glomerular Filtration Rate 58 (60-); Glucose, Blood 128 mg/dL (70-99); Potassium, Blood 5.5 mmol/L (3.5-5.5); Sodium, Blood 137 mmol/L (136-145); Total Protein, Blood 5.6 g/dL (6.4-8.2)
[2019-11-24 11:53] LABS: Platelet Count 11 K/mm3 (150-400)
--- NOTE | 2019-11-24 13:54 | NUR ---
ED Palliative Care Consult for Goals of Care Spoke with Dr Gates and discussed case. Pt resting on gurney and is A&OX2. Pt undable to verbalize appropriate reason for hospital visit and unable to verbalize current year. Pt reports being in the ED for a flower convention and the current year is 1981. Pt reports pain in his upper abdomen area. Called and spoke with Pt's Bridget. Engaged in therapeutic discussion regarding goals of care. Listened as Rocio discusses events leading up to today. Pt was placed with [facility] shortly after being discharge from his last hospital stay. Pt had his drain tube replaced and then needing replaced again. At this time Pt went off of hospice. Listened as Bridget expressed concerns regarding medications Pt was receiving of hospice. Bridget reports feeling that hospice was speeding up Pt's dying process by receiving anxiety and agitation medications. Pt had become sedated and was sleeping more. Educated Pt on hospice philosophy including offering medications only when needed to address discomort. Attempted to assess goals of care with Bridget. Bridget would like Pt to be admitted to have his acute condition addressed and then would like Pt placed with [facility]. Pt's Advanced Directive is in his ED room. Will obtain copies and send one copy to medical records. Spoke with Dr Gates and plan is to admitt. Spoke with hospitalist Ga and discussed case. Pt will likely be admitted o comfort care and will consult with Dr John to assess bleeding and if procedure would be beneficial for comfort. Spoke with [facility] and discussed case. Lottie will begin processing Pt for [facility]. Palliative Care will remain available.
[2019-11-24] MEDS ORDERED: ZYLOPRIM PO (14:29)
[2019-11-24] MEDS ORDERED: NEURONTIN300 MG PO (14:29)
[2019-11-24] MEDS ORDERED: ZOFRAN8 MG PO (14:29)
[2019-11-24] MEDS ORDERED: XARELTO20 MG PO (14:30)
[2019-11-24] MEDS ORDERED: Lisinopril2.5 MG PO (14:31)
[2019-11-24] MEDS ORDERED: POTA10T PO (14:31)
[2019-11-24] MEDS ORDERED: FURO20 PO (14:31)
[2019-11-24] MEDS ORDERED: METO25 PO (14:31)
[2019-11-24] MEDS ORDERED: DOCU100 PO (14:32)
[2019-11-24] MEDS ORDERED: B-121000 MC4 PO (14:32)
[2019-11-24] MEDS ORDERED: Aspirin EC81 MG PO (14:32)
[2019-11-24] MEDS ORDERED: THERA1 EACH PO (14:32)
[2019-11-24] MEDS ORDERED: MELATONIN5 M1 PO (14:33)
[2019-11-24 15:58] LABS: Prothrombin Time Results 37.2 Sec (9.7-11.5)
[2019-11-24 16:06] LABS: International Normalized Ratio 3.74
[2019-11-24 17:04] LABS: Hematocrit 38.2 % (37.0-53.0); Hemoglobin 12.2 g/dL (13.5-17.5)
--- NOTE | 2019-11-24 17:45 | NUR ---
PT ARRIVAL/SHIFT SUMMARY: PT IS ALERT AND ORIENTED TO SELF AND FAMILY ONLY. PT THOUGHT HE WAS IN [place] AND IS A POOR HISTORIAN, SO UNABLE TO OBTAIN MOST OF HEALTH HISTORY. PT REPORTS 5/10 SUBSTERNAL CP. INITIAL TROPONIN-NEGATIVE. PT REPORTS THAT THE CP HAS BEEN PRESENT FOR "3 MONTHS." BUT REPORTS THE INTENSITY OF PAIN HAS WORSENED IN THE RECENT PAST. PT NEEDS FULL ASSIST WITH TURNS/REPOSITIONING IN BED. LUNGS ARE CLEAR T/O BILATERALLY BUT DIMINISHED IN THE JASON/LLL. SP02 SATS-UPPER 90% RANGE ON RA. NO DYSPNEA NOTED. HR REGULAR, SR 100-110'S RANGE. PT HAS SIGNIFICANT SWELLING THAT PT REPORTS IS NEW. 4+ HARD/PITTING EDEMA IN BILATERALLY LE'S. ABD LARGE/ROUND/HYPO-ACTIVE BT'S X45 QAUDS. PT CURRENTLY NPO. CONCERNED ABOUT PT'S ABILITY TO SWALLOW HE IS DROWSY WITH ASSESSMENT. PT HAS A DRAIN PRESENT TO THE RT UPPER QAUD, THAT PT REPORTS IS "DRAINING HIS GALLBLADDER." PT HAS CHRONIC KOEHLER CATH PLACED. WILL CHANGE OUT KOEHLER CATH FOR NEW ONE AND SEND A UA.
[2019-11-24 18:28] LABS: Calcium, Blood 8.7 mg/dL (8.5-10.1); Creatinine, Blood 1.38 mg/dL (0.60-1.20); Potassium, Blood 6.1 mmol/L (3.5-5.5)
--- NOTE | 2019-11-24 19:00 | NUR ---
ASSUMED CARE NOTE: ASSUMED CARE OF PT AT 1900, RECEVIED REPORT FROM KAY ZHAO. PT IS ALERT AND ORIENTED TO SELF. PT IS CONFUSED AND CANNOT ANSWER QUESTIONS APPROPRIATLY. PT IS ON RA WITH SPO2 ABOVE 90%, NO S/S OF RESPRIATORY DISTRESS. PT IS IN SINUS TACH WITH HR IN THE 110'S. KOEHLER PATENT AND DRAINING LITTLE TO NO URINE. PT IS USING BEDPAN IN BED. CALLED FOR UPDATE WILL CONTINUE TO ASSESS PT T/O SHIFT.
--- NOTE | 2019-11-24 19:30 | NUR ---
REPORTED OFF TO PAVEL DHILLON WHOM IS ASSUMING CARE OF PT.
--- NOTE | 2019-11-24 23:05 | NUR ---
UPDATE: AT BEDSIDE, RADHA HOSPITALIST AT BED DISCUSSING PT'S CARE. COMFORT CARE MEASURES WERE DISSCUSED. ORDERS TO D/C NS FLUID BOLUSES WERE GIVEN.
--- NOTE | 2019-11-25 01:10 | NUR ---
ASSUMED CARE OF CHRIS RIOS RN IN ICU. PATIENT IS A ICU TRANSFER TO ROOM 309. HE WAS TRANSFERRED TO BED USING A SLIDER SHEET. HE IS AOX2, BUT HAS SOME CONFUSION, GRABBING AT THINGS IN THE AIR, ASKING FOR HIS TO GRAB THINGS THAT ARE NOT IN THE ROOM. SHE STATES HE DOES TRY AND GET UP OUT OF BED. 3 SIDE RAILS PLACED UP AND BED ALARM IS ON. LUNG SOUNDS CLEAR IN UPPER LOBES, DIMINISHED LOWER. HR REGULAR. PITTING EDEMA IN THE BLE +4.KOEHLER CATHETER PATENT BUT SCANT AMOUT OF URINE NOTED. GALLBLADDER DRAINAGE TUBE WITH DRESSING TO RUQ, DRAINING DARK FLUID WITH RED NOTED IN IT. ABDOMIN DISTENDED FIRM, [id number], ABDOMINAL BINDER IN PLACE. IV ANTIBOTIC INFUSING AT 12.5ML/HR. THEN HE WILL BE SL. DENIES PAIN AT THIS TIME, OR NAUSEA. CALL LIGHT GIVEN, EXPLAINED TO WHO WILL BE STAYING THE NIGHT. WILL CONTINUE TO MONITOR.
--- NOTE | 2019-11-25 01:23 | NUR ---
TRANSFER NOTE: PT WAS TRANSFERED TO MEDICAL FLOOR, REPORT GIVEN TO NURSE FLORES. PT TRANSFERED VIA BED. NOTIFIED.
--- NOTE | 2019-11-25 03:30 | NUR ---
PATIENT GRABBING AT THINGS IN THE AIR, RESTLESS SOME, DENIES PAIN. ASLEEP AT BEDSIDE. IV STILL INFUSING. REPOSITIONED SOME AND COVERED HIM UP. CALL LIGHT IN REACH AND BED ALARM ON.
--- NOTE | 2019-11-25 04:31 | NUR ---
PATIENT SLEEPING COMFORTABLY. IV ALMOST COMPLETE FROM IV ANTIBOTIC. STILL ASLEEP AT BEDSIDE. CATHETER STILL PATIENT SCANT AMOUNT OF OUTPUT. GALL BLADDER DRAINAGE TUBE CHECKED. CALL LIGHT IN REACH, BED ALARM ON.
--- NOTE | 2019-11-25 05:30 | NUR ---
LAB CAME OUT OF THE ROOM AND INFORMED THAT SHE THINKS THE PATIENT HAD PASSED. HAD JUST STEPPED OUT OF THE ROOM TO GO TO THE BATHROOM. VERIFIED NO BREATH SOUNDS OR HEART BEAT. TIME OF 0500. WHEN RETURNED TO ROOM, INFORMED HER THAT HE HAD PASSED. OFFERED COMFORT FOR HER. ASKED IF SHE WANTED PASTURAL CARE SHE SAID YES. SHE WILL CALL THEIR FAMILY. SHE SAID [facility] IS THE CHOICE. CALLED MD AND INFORMED OF TIME OF . ML ZHAO INFORMED NURSING FILLER WIPER. ALLOWED TIME WITH THE PATIENT.
--- NOTE | 2019-11-25 06:00 | NUR ---
PASTORAL CARE IN ROOM WITH AND CHILDREN, FINISHED UP THEIR GOOD BYES AND LEFT. REMOVED IV AND CATHETER. YELLOW GOWN PLACED ON PATIENT. LEFT ABDOMINAL BINDER AND GALLBLADDER DRAIN TUBE. INFORMED CHARGE NURSE THAT FAMILY HAS LEFT.
--- NOTE | 2019-11-25 07:03 | NUR ---
CAll back - Met with pt's spouse, 2 daughters and a friend. Provided space for spouse to reminisce about the and their almost 50 years together. She was tearful at times, but grieving appropriately. Spouse has good family and tamara support. A supplication was supplied on behalf of those present. Gratitude was expressed.
== END 2019-11-25 05:00 | DRG 871 ==
LOC: ER 10:28 → ICUE 17:25 → ICUW 17:25 → MEDS 17:25 → ICUE 17:37 → MEDS 11-25 01:09
PROVIDERS: Emergency Medicine; Nurse Practitioner Acute Care; ADMIT Internal Medicine
PROC: 30233N1 Transfusion of Nonautologous Red Blood Cells into Peripheral Vein, Percutaneous Approach (ICD-10-PCS; principal; 2019-11-24)
DX: A41.9 Sepsis, unspecified organism (principal); I81 Portal vein thrombosis; J18.9 Pneumonia, unspecified organism; C25.9 Malignant neoplasm of pancreas, unspecified; C78.7 Secondary malignant neoplasm of liver and intrahepatic bile duct; K83.09 Other cholangitis; R65.20 Severe sepsis without septic shock; E87.2 Acidosis; S36.039A Unspecified laceration of spleen, initial encounter; S36.029A Unspecified contusion of spleen, initial encounter; N17.9 Acute kidney failure, unspecified; Z51.5 Encounter for palliative care; G47.33 Obstructive sleep apnea (adult) (pediatric); I25.2 Old myocardial infarction; E11.9 Type 2 diabetes mellitus without complications; Z85.07 Personal history of malignant neoplasm of pancreas; K21.9 Gastro-esophageal reflux disease without esophagitis; J45.909 Unspecified asthma, uncomplicated; E78.00 Pure hypercholesterolemia, unspecified; M81.0 Age-related osteoporosis without current pathological fracture; Z98.84 Bariatric surgery status; Z95.5 Presence of coronary angioplasty implant and graft; Z96.652 Presence of left artificial knee joint; Z87.891 Personal history of nicotine dependence; M10.9 Gout, unspecified; K81.9 Cholecystitis, unspecified; D69.6 Thrombocytopenia, unspecified; Z66 Do not resuscitate; Y92.9 Unspecified place or not applicable
CPT/HCPCS: 36415; 36430; 51703; 71045; 74176; 74177; 80048; 80053; 82140; 82947; 83605; 83690; 83880; 84484; 85014; 85018; 85025; 85610; 85730; 86850; 86900; 86901; 86923; 87040; 93005; 93010; 96361; 96365; 99285-25; A9270-GY; J2405; J2543; J7030; P9035; Q9967